=== PATIENT | female | born 1960 | race Caucasian/White ===

== ENCOUNTER → 2023-03-24 12:52 | Outpatient (CLI) | payer MEDICAID, SELFPAY ==
--- NOTE | 2023-03-24 12:30 | DI.CT_ITS ---
Exam(s) CT HEAD FACIAL WO EXAM: CT HEAD FACIAL WO CLINICAL HISTORY: fall, facial injury/head trauma S09.93XA. TECHNIQUE: Imaging Protocol: Axial computed tomography images with coronal and sagittal reformatted images were created and reviewed COMPARISON: No exams were available for comparison FINDINGS: CT Head: Ventricles and Extra axial spaces: Normal in size and morphology for the patient's age. Hemorrhage: None. Cerebral parenchyma: Mild atrophy. Midline shift: None. Brainstem/Cerebellum: Normal. Calvarium: Normal. Visualized Paranasal sinuses/Mastoids: Moderate mucosal thickening bilateral maxillary sinuses and et hmoid sinuses. No air-fluid levels.. Soft Tissues: Unremarkable. CT Face: Facial Bones: Question nondisplaced right nasal fracture. Sinuses and Mastoids: Unremarkable. Globes, extraocular muscles, optic nerves and retrobulbar fat: Normal. Upper aerodigestive tract: Normal. Mandible and bilateral temporomandibular joints: Severe degenerative changes at the temporomandibula r joints, left greater than right. Soft tissues: Normal. IMPRESSION: 1. Head CT: No acute intracranial process. Sinus disease. 2. Facial CT: Question of a nondisplaced right nasal fracture. RADIATION DOSE DELIVERED: Total DLP DATA REPOSITORY: All CT scans at this facility are submitted to the National Radiology Data Registry (NRDR) Dose Index Registry (DIR) with the [employer] (ACR). RADIATION OPTIMIZATION: All CT scans at this facility use at least one of these dose optimization te chniques: automated exposure control; mA and/or kV adjustment per patient size (includes targeted exa ms where dose is matched to clinical indication); or iterative reconstruction.
== END ==
PROVIDERS: Visit Provider Physician Assistant
DX: S09.93XA Unspecified injury of face, initial encounter (principal); W19.XXXA Unspecified fall, initial encounter; X58.XXXA Exposure to other specified factors, initial encounter
CPT/HCPCS: 70450; 70486

== ENCOUNTER 2023-03-26 18:17 | Emergency (ER) | payer MEDICAID, SELFPAY ==
[2023-03-26 18:30] VITALS: BP 157/102; PULSE 115; RESP 16; TEMP 36.6; O2SAT 98
--- NOTE | 2023-03-26 19:10 | ED.GENADUL_ITS ---
Discharge Plan Disposition Patient Disposition: Home Condition: Improving Discharge Details Chief Complaint: Epistaxis Clinical Impression: Epistaxis Primary Care Provider: None,None ED Provider: Kayden Vazquez Home Meds and New Rx's Prescriptions: No Action amoxicillin-pot clavulanate 875-125 mg tablet 1 tab PO Q12H Qty: 14 0RF Discharge Instructions Instructions: Nosebleed (ED) Additional Instructions: Care management team will be reaching out for further resources. We will also be coordinating primary care referral. Medical Decision Making 62-year-old female status post fall on 03/24 outpatient imaging showing possible right nasal bone fracture, presents with spontaneous left nares epistaxis, patient is on a daily aspirin, no trauma today neurologically intact hemodynamically stable, tachycardia likely related to situational discomfort, warm well-perfused on examination alert oriented no external signs of acute trauma, subacute ecchymosis to bridge of nose, anterior left nares bleed without evidence of posterior bleed, tolerating secretions airway intact. Pressure clamp, Afrin and TXA applied with success. Home care instructions and return precautions given. 21: 10 patient resting comfortably, hemostatic. Family numbers here at bedside endorse that patient does have a history of extensive alcohol abuse which likely related to her fall. Patient neurologically intact no acute distress. Given Afrin for home. Home care instructions for worsening symptoms. Will place patient on care management list for coordination of outpatient resources as needed. Patient also given referral for primary care physician HPI General Date/Time Provider Initiated Documentation: 03/26/23 18:36 . HPI Narrative: 62-year-old female sustained facial injury 03/24 outpatient imaging showing right nasal bone fracture, presents with spontaneous left nares anterior nosebleed. Related Data Home Medications Medication Instructions Recorded Confirmed amoxicillin 875 mg-potassium 1 tab PO Q12H #14 tabs 03/24/23 03/24/23 clavulanate 125 mg tablet Previous Rx's Medication Instructions Recorded amoxicillin 875 mg-potassium 1 tab PO Q12H #14 tabs 03/24/23 clavulanate 125 mg tablet Allergies Allergy/AdvReac Type Severity Reaction Status Date / Time No Known Allergies Allergy Verified 03/24/23 12:01 General Stated Complaint: Epistaxis KAMI: 3 Review of Systems Narrative: Review of Systems Constitutional: negative Eyes: negative ENT: Nosebleed Cardiovascular: negative Respiratory: negative Gastrointestinal: negative : negative Musculoskeletal: negative Skin: negative Neurologic: negative Psych: negative PFSH All Active Problems (Updated 03/26/23 @ 21:12 by Kayden Vazquez MD) Epistaxis (Acute) Social History Smoking/Tobacco Use Status: Current every day Smoking risk assessment performed?: Yes Alcohol Intake: current Alcohol Intake frequency: holidays/special occasions only Drug use: Never Do you feel safe at home: Yes Do you feel safe in your relationship?: Yes Exam Narrative Exam Narrative: Physical Examination General: alert, awake, cooperative, resting comfortably, no acute distress HEENT: Subacute appearing ecchymosis to bridge of nose, left anterior nares epistaxis, patient tolerating secretions no evidence of posterior epistaxis Neck: supple, trachea midline; full ROM Chest: normal to inspection Respiratory: normal respiratory effort, speaking in full sentences Neuro: AAOx3, normal speech, moving all extremities Psych: Appropriate mood and affect Course Vital Signs Vital signs: Vital Signs Temperature 36.6 C 03/26/23 18:30 Pulse 115 H 03/26/23 18:30 Respiratory Rate 16 03/26/23 18:30 Blood Pressure 157/102 H 03/26/23 18:30 Pulse Oximetry 98 03/26/23 18:30 Temperature 36.6 C 03/26/23 18:30 Temperature Source Tympanic 03/26/23 18:30 Pulse 115 H 03/26/23 18:30 Respiratory Rate 16 03/26/23 18:30 Respiratory Effort Normal 03/26/23 18:33 Blood Pressure 157/102 H 03/26/23 18:30 Blood Pressure Position Sitting 03/26/23 18:30 Pulse Oximetry 98 03/26/23 18:30 Oxygen Delivery Method Room Air 03/26/23 18:30 Oxygen Flow Rate 0 03/26/23 18:30 Pain Level 0 03/26/23 18:30 PAWSS Have you Been Recently Intoxicated or Drunk Within the Last 30 days?: No Result: 0
--- NOTE | 2023-03-26 22:51 | NUR.NOTE ---
Pt placed care management referral list to establish primary care, Alcoholism, and nose bleed. Pt to be seen within 1-[address] Vazquez.
== END 2023-03-26 21:16 | disposition home or self-care (01) ==
PROVIDERS: Emergency Provider Emergency Medicine
DX: R04.0 Epistaxis (principal)
CPT/HCPCS: 30901; 99282

== ENCOUNTER 2023-03-27 10:21 | Emergency (ER) | payer MEDICAID, SELFPAY ==
[2023-03-27 10:24] VITALS: BP 136/89; PULSE 110; RESP 20; TEMP 37.2; O2SAT 98
[2023-03-27 11:47] VITALS: BP 149/109; PULSE 122; TEMP 36.1; O2SAT 99
[2023-03-27 12:01] LABS: Abs Immature Grans 0.06 10^3/uL (0.0-0.06); Absolute Basophil Count 0.05 10^3/uL (0.0-0.2); Absolute Eosinophil Count 0.08 10^3/uL (0.0-0.7); Absolute Lymphocyte Count 3.11 10^3/uL (1.2-3.4); Absolute Monocyte Count 0.96 10^3/uL (0.1-0.8); Absolute Neutrophil Count 6.35 10^3/uL (1.2-6.7); Basophils % 0.5; Eosinophils % 0.8; HCT 32.5 % (36.0-46.0); Immature Grans % 0.6; Lymphocytes % 29.3; MCH 34.9 pg (27.0-33.0); MCHC 33.8 % (32.0-36.0); MCV 103 fL (80-95); MPV 9.5 fL (8.0-11.0); Neutrophils % 59.8; Platelet Count 215 10^3/uL (130-400); RBC 3.15 10^6/uL (3.93-5.22); RDW 14.5 % (11.7-14.6); WBC 10.61 10^3/uL (4.4-10.8)
[2023-03-27] MEDS: Ondansetron 4 MG/2 ML VIAL 8 MG IVP (12:02)
[2023-03-27] MEDS: LORazepam 2 MG/ML VIAL 0.5 MG IVP (12:03)
[2023-03-27] MEDS: Oxymetazolone 0.05% SPRAY 15 ML BTL (12:03)
[2023-03-27] MEDS: Benzocaine 20% 60 ML CAN (12:04)
[2023-03-27] MEDS: Normal Saline 1,000 ML 1000 ML IV (12:04)
[2023-03-27] MEDS: Tranexamic Acid 1,000 MG/10 ML VIAL 500 MG NS (12:04)
[2023-03-27 12:15] LABS: INR 1.1 (0.9-1.1); PTT Activated 24.2 sec (23.6-32.8); Prothrombin Time 11.3 sec (9.1-11.1)
[2023-03-27 12:17] LABS: ALT 38 U/L (14-59); AST 35 U/L (15-37); Albumin 3.8 g/dL (3.4-5.0); Alkaline Phosphatase 67 U/L (46-116); Anion Gap 11.6 mmol/L (3-11); BUN 19 mg/dL (7-18); Bilirubin, Total 0.7 mg/dL (0.2-1.0); CO2 24.4 mmol/L (21.0-32.0); CREATININE 0.9 mg/dL (0.55-1.02); Calcium 9.1 mg/dL (8.5-10.1); Chloride 96 mmol/L (98-107); Estimated GFR 71.83 (mL/min/1.73m2); Glucose 138 mg/dL (74-106); Potassium 3.6 mmol/L (3.5-5.1); Sodium 132 mmol/L (136-145); Total Protein 7.8 g/dL (6.4-8.2)
--- NOTE | 2023-03-27 12:49 | ED.GENADUL_ITS ---
Discharge Plan Disposition Patient Disposition: Home Discharge Details Clinical Impression: Epistaxis Primary Care Provider: None,None ED Provider: Rosalee Bedolla Home Meds and New Rx's Prescriptions: No Action amoxicillin-pot clavulanate 875-125 mg tablet 1 tab PO Q12H Qty: 14 0RF Discharge Instructions Instructions: Nosebleed (ED) Additional Instructions: Dr. Izaguirre's office will call you Wednesday for a follow-up appointment. Stop your aspirin. Continue your Augmentin. Tylenol 650 mg every 4-6 hours as needed for pain. Return to ED for bleeding out your nostrils or down the back of your throat. Discharge Data Discharge Date/Time-TO BE ENTERED AT DEPARTURE: 03/27/23 13:22 Medical Decision Making Patient is much calmer and states that she feels well in the ED. I will set her up for ENT follow-up on Wednesday. She just started Augmentin last night and I will have her continue this. Her AP pack will stay in place until seen by ENT. I have asked her to stop her aspirin. Of note, the patient is typically tachycardic when she is seen by providers. 1315. The patient, her daughter, and niece are all updated on the plan. Dr. Izaguirre's office will call her Wednesday for follow-up. Primary care referral was put in last night as well. Post OP and R nares clear w/no bleeding Medical Records Medical records reviewed: Yes I reviewed the patient's medical records. Medical records narrative: Patient had a nondisplaced nasal fracture on 03/24/23. Lab Data Lab results reviewed: Yes I reviewed the patient's lab results. Lab results narrative: Patient's hemoglobin and hematocrit are 11 and 32.5. I do not see any old labs for comparison. The BUN is 19, glucose 138, sodium 132, and chloride 96. The remainder of her labs are normal including platelets, INR, and PTT. HPI General Date/Time Provider Initiated Documentation: 03/27/23 11:13 . History of Present Illness described as moderate, HPI Narrative: This 62-year-old female patient presents with a chief complaint of epistaxis. The patient states that her nose began to bleed last night but by the time she came to the ED it had stopped. It began to bleed again this morning around 10 or 1015 and she could not stop it. She states that it is coming out of her left nares as well as going down the back of her throat. Of note, the patient fell on her face about a week ago and fractured her nose. She is an alcoholic. She is anxious in the ED. She denies hematuria or bright red blood per rectum. She has vomited some clots. On my instruction she blew out multiple clots in the ED. She has no dizziness or lightheadedness. Her daughter and niece are here with her. Related Data Home Medications Medication Instructions Recorded Confirmed amoxicillin 875 mg-potassium 1 tab PO Q12H #14 tabs 03/24/23 03/27/23 clavulanate 125 mg tablet Previous Rx's Medication Instructions Recorded amoxicillin 875 mg-potassium 1 tab PO Q12H #14 tabs 03/24/23 clavulanate 125 mg tablet Allergies Allergy/AdvReac Type Severity Reaction Status Date / Time codeine AdvReac Mild Nausea Verified 03/27/23 10:53 General Stated Complaint: Epistaxis KAMI: 3 Review of Systems Constitutional Constitutional: Denies chills, Denies fever(s), Denies headache(s) and Denies weakness Eyes Eyes: Reports other (No redness) ENT Ears, Nose, Mouth, and Throat: Denies headache(s), Reports epistaxis (Left nares) and Denies disequilibrium Cardiovascular Cardiovascular: Denies chest pain and Denies dyspnea Respiratory Respiratory: Denies cough and Denies dyspnea Gastrointestinal Gastrointestinal: Reports abdominal pain (transient), Reports nausea, Reports vomiting and Reports hematemesis Genitourinary Genitourinary: Denies hematuria Musculoskeletal Musculoskeletal: Denies abnormal gait Integumentary/Breasts Skin/Breast: Reports other (No pallor or unusual bruising) Neurologic Neurologic: Denies abnormal gait, Denies headache(s), Denies disequilibrium and Denies weakness PFSH All Active Problems (Updated 03/27/23 @ 13:01 by Rosalee Bedolla MD) Epistaxis (Acute) Social History Smoking/Tobacco Use Status: Current every day Smoking risk assessment performed?: Yes Alcohol Intake: current Alcohol Intake frequency: holidays/special occasions only Drug use: Never Do you feel safe at home: Yes Do you feel safe in your relationship?: Yes Exam Const General: well developed and anxious Orientation: alert, awake and oriented x3 Limitations: mental status not altered [facility] Head: normocephalic and atraumatic General nose exam: external nose normal, epistaxis (Left nares, steady) and other (R nares clear w/no active bleed s/p pack placed L) Face and sinus: ecchymosis (Old ecchymosis evident beneath eyes and on the lower face around mouth) Mouth: oral mucosae normal and moist mucous membranes Throat: other (Posterior oropharynx with active bleeding) Eyes Conjunctivae: conjunctivae normal Neck Neck: full ROM Chest Chest: normal inspection of the chest Resp Effort & Inspection: normal respiratory effort and able to speak in complete sentences Auscultation: clear to auscultation bilaterally Cardio Rate: regular rate Rhythm: regular rhythm GI Inspection: normal to inspection Palpation: soft and nontender Auscultation: normal bowel sounds Skin General skin exam: other (PWD) Neuro General: patient alert and patient awake Speech: speech normal Gait: normal gait Motor: strength 5/5 throughout Sensory Exam: no sensory deficits noted Extrem General: normal to inspection and full ROM Course Vital Signs Vital signs: Vital Signs Temperature 37.2 C 03/27/23 10:24 Pulse 110 H 03/27/23 10:24 Respiratory Rate 20 03/27/23 10:24 Blood Pressure 136/89 03/27/23 10:24 Pulse Oximetry 98 03/27/23 10:24 Temperature 36.1 C L 03/27/23 11:47 Temperature Source Oral 03/27/23 10:24 Pulse 122 H 03/27/23 11:47 Respiratory Rate 20 03/27/23 10:24 Respiratory Effort Normal, Non-Labored 03/27/23 10:49 Blood Pressure 149/109 H 03/27/23 11:47 Blood Pressure Position Sitting 03/27/23 10:24 Pulse Oximetry 99 03/27/23 11:47 Oxygen Delivery Method Room Air 03/27/23 11:47 Oxygen Flow Rate 0 03/27/23 11:47 Pain Level 8 03/27/23 12:03 Lab/Test Results Lab/Test Results: Laboratory Tests Range/Units 03/27/23 11:48 WBC (4.4-10.8) 10^3/uL 10.61 RBC (3.93-5.22) 10^6/uL 3.15 L Hgb (11.2-15.7) g/dL 11.0 L Hct (36.0-46.0) % 32.5 L MCV (80-95) fL 103 H MCH (27.0-33.0) pg 34.9 H MCHC (32.0-36.0) % 33.8 RDW (11.7-14.6) % 14.5 Plt Count (130-400) 10^3/uL 215 MPV (8.0-11.0) fL 9.5 Immature Gran % 0.6 Neutrophils % 59.8 Lymphocytes % 29.3 Monocytes % 9.0 Eosinophils % 0.8 Basophils % 0.5 Nucleated RBC % (0.0-0.3) % 0.0 Absolute Neutrophils (1.2-6.7) 10^3/uL 6.35 Absolute Lymphocytes (1.2-3.4) 10^3/uL 3.11 Absolute Monocytes (0.1-0.8) 10^3/uL 0.96 H Absolute Eosinophils (0.0-0.7) 10^3/uL 0.08 Absolute Basophils (0.0-0.2) 10^3/uL 0.05 PT (9.1-11.1) sec 11.3 H INR (0.9-1.1) 1.1 APTT (23.6-32.8) sec 24.2 Sodium (136-145) mmol/L 132 L Potassium (3.5-5.1) mmol/L 3.6 Chloride (98-107) mmol/L 96 L Carbon Dioxide (21.0-32.0) mmol/L 24.4 Anion Gap (3-11) mmol/L 11.6 H BUN (7-18) mg/dL 19 H Creatinine (0.55-1.02) mg/dL 0.9 Est GFR (CKD-EPI 2020) (mL/min/1.73m2) 71.83 Glucose (74-106) mg/dL 138 H Calcium (8.5-10.1) mg/dL 9.1 Total Bilirubin (0.2-1.0) mg/dL 0.7 AST (15-37) U/L 35 ALT (14-59) U/L 38 Alkaline Phosphatase (46-116) U/L 67 Total Protein (6.4-8.2) g/dL 7.8 Albumin (3.4-5.0) g/dL 3.8 Procedures Other Description: Epistaxis control: Patient with active bleeding down her posterior oropharynx is as well as about her left nares. She blew her nose and a large amount of clot came out. Large Q-Tip with TXA placed L after benzocaine sprayed into the nares and posterior oropharynx. A 7.5 cm AP pack ([employer]) was gently placed after this with balloon inflated. Patient tolerated this well. Initially had some blood coming out of her right nares but this quickly stopped after the pack was placed. Posterior oropharynx became dry following this. Patient was retching and felt sick to her stomach. She was given Zofran and a small amount of Ativan with good relief. PAWSS Have you Been Recently Intoxicated or Drunk Within the Last 30 days?: Yes Have you Ever Experienced Previous Episodes of Alcohol Withdrawal?: Yes Have you ever Experienced Withdrawal Seizures?: No Have you ever Experienced Delirium Tremens(DT)s?: No Have you ever undergone Alcohol Rehabilitation Treatment (i.e, inpt ot outpa tient treatment programs)?: Yes Have you ever Experienced Blackouts?: No Have you ever Combined Alcohol with other Downers within the last 90 days?: No Have you ever Combined Alcohol with any other Substance of Abuse during the last 90 days?: No Positive Blood Alcohol level on Presentation? [PCS.BAL]: Unable to Obtain Evidence of Increased Autonomic Activity (i.e. HR>120, tremor, sweating, agitation, nausea)?: No Result: 3
[2023-03-27 13:21] VITALS: BP 131/94; PULSE 114; RESP 16; TEMP 37.1; O2SAT 98
--- NOTE | 2023-03-27 14:58 | NUR.NOTE ---
Referral fax/email to [facility] for anterior/posterior nosebleed with rhino rocket place; for appt Mar 29. Nursing Note:
== END 2023-03-27 13:22 | disposition home or self-care (01) ==
PROVIDERS: Emergency Provider Emergency Medicine
DX: R04.0 Epistaxis (principal)
CPT/HCPCS: 30901; 80053; 96361; 96374; 96375; 99284; 85025; 85610; 85730; J2060; J2405; J3490

== ENCOUNTER 2023-06-29 03:36 | Outpatient (CLI) | payer MEDICAID, SELFPAY ==
[2023-06-29 12:11] LABS: Abs Immature Grans 0.02 10^3/uL (0.0-0.06); Absolute Basophil Count 0.08 10^3/uL (0.0-0.2); Absolute Eosinophil Count 0.27 10^3/uL (0.0-0.7); Absolute Lymphocyte Count 2.58 10^3/uL (1.2-3.4); Absolute Neutrophil Count 5.13 10^3/uL (1.2-6.7); Basophils % 0.9; Eosinophils % 3.1; HCT 36.4 % (36.0-46.0); HGB 11.9 g/dL (11.2-15.7); Immature Grans % 0.2; Lymphocytes % 29.7; MCH 29.4 pg (27.0-33.0); MCHC 32.7 % (32.0-36.0); MCV 90 fL (80-95); MPV 10.7 fL (8.0-11.0); Monocytes % 6.9; Neutrophils % 59.2; Platelet Count 365 10^3/uL (130-400); RBC 4.05 10^6/uL (3.93-5.22); RDW 14.8 % (11.7-14.6); RDW-SD 48.9 fL; WBC 8.68 10^3/uL (4.4-10.8)
[2023-06-29 12:23] LABS: Iron 42 ug/dL (50-170); Total Iron Binding Capacity 285 ug/dL (250-450); Transferrin Sat 15 % (15-50)
[2023-06-29 12:33] LABS: Hemoglobin A1C 5.7 % (<5.7)
[2023-06-29 12:34] LABS: ALT 15 U/L (14-59); AST 9 U/L (15-37); Albumin 3.9 g/dL (3.4-5.0); Alkaline Phosphatase 58 U/L (46-116); BUN 14 mg/dL (7-18); Bilirubin, Total 0.3 mg/dL (0.2-1.0); CREATININE 0.8 mg/dL (0.55-1.02); Calcium 9.4 mg/dL (8.5-10.1); Chloride 105 mmol/L (98-107); Estimated GFR 82.74 (mL/min/1.73m2); Ferritin 106 ng/mL (8-252); Glucose 112 mg/dL (74-106); Potassium 3.7 mmol/L (3.5-5.1); Sodium 142 mmol/L (136-145); TSH (W/Ref FT4) 2.67 uIU/mL (0.36-3.74); Total Protein 7.5 g/dL (6.4-8.2)
== END 2023-06-29 03:37 | disposition home or self-care (01) ==
LOC: LOS 03:36
PROVIDERS: PCP Nurse Practitioner Family; Visit Provider Nurse Practitioner Family
DX: R53.83 Other fatigue (principal); Z00.00 Encounter for general adult medical examination without abnormal findings
CPT/HCPCS: 36415; 80053; 82728; 83036; 83540; 83550; 84443; 85025

== ENCOUNTER → 2023-07-05 03:10 | Outpatient (CLI) | payer MEDICAID, SELFPAY ==
--- NOTE | 2023-07-05 09:00 | DI.MAMMO_ITS ---
Exam(s) MAMMO SCREENING EXAM: MAMMO SCREENING CLINICAL HISTORY: screening, Z12.39 TECHNIQUE: Mammograms were interpreted according to the usual protocol including computer analysis w [facility] CAD system, tomosynthesis and C-view imaging. COMPARISON: [facility] FINDINGS: The breasts are composed of scattered fibroglandular densities, Breast Density category B. No suspicious masses or suspicious microcalcifications are seen. No skin thickening or abnormal axillary lymph nodes are seen. There has been no significant change from prior exam. IMPRESSION: BI-RADS Category 1, Negative mammogram Yearly screening mammography is recommended. Breast Density - Category B, scattered fibroglandular densities. A negative radiographic report should not delay biopsy if a dominant or clinically suspicious mass is present. Up to ten percent of cancers are not identified on mammography. A negative report may reinforce clinical impression. Adenosis and dense breasts may obscure an underlying neoplasm. False positive reports average 6 to 10%. Patient will receive a letter notifying them of these results.
== END ==
PROVIDERS: PCP Nurse Practitioner Family; Visit Provider Nurse Practitioner Family
DX: Z12.31 Encounter for screening mammogram for malignant neoplasm of breast (principal)
CPT/HCPCS: 77063; 77067

== ENCOUNTER 2023-08-16 16:46 | Outpatient (REF) | payer MEDICAID, SELFPAY ==
--- NOTE | 2023-08-16 14:58 | PAPFT_PTH ---
PATIENT: Kathie Arguello LOC: [facility] U#:[id number] AGE/SX: 62/F ROOM: RE08/16/[address]: Yesica Chang MD : 1960 BED: DIS: 08/16/2023 SPEC #: [id number] RECD: 08/16/23 17:57 STATUS: LISSETTE CLEMENTE #: [id number] DEVORA: 08/16/23 14:[address]: Yesica Chang DEPT: [facility] Cytology RECD BY: July Dao ENTERED: 08/16/23 17:58 SP TYPE: PAPFT OT DR: Minnie Lara, PEDRITO Tissues: 1 - CX/ENDOCX FOR PAP SMEARS Procedures: PAP THIN PREP/UVM Screening HPV DNA PROBE Comments: [id number]
== END 2023-08-16 16:47 | disposition home or self-care (01) ==
LOC: LBN 16:46
PROVIDERS: PCP Nurse Practitioner Family; Visit Provider Obstetrics & Gynecology
DX: Z12.4 Encounter for screening for malignant neoplasm of cervix (principal); Z11.51 Encounter for screening for human papillomavirus (HPV)
CPT/HCPCS: 88142; 87624

== ENCOUNTER 2024-02-15 02:28 | Outpatient (CLI) | payer MEDICAID, SELFPAY ==
[2024-02-15 12:10] LABS: HCT 35.8 % (36.0-46.0); HGB 11.9 g/dL (11.2-15.7); MCH 30.3 pg (27.0-33.0); MCHC 33.2 % (32.0-36.0); MCV 91 fL (80-95); MPV 10.6 fL (8.0-11.0); Platelet Count 292 10^3/uL (130-400); RBC 3.93 10^6/uL (3.93-5.22); RDW 13.5 % (11.7-14.6); RDW-SD 45.3 fL; WBC 6.04 10^3/uL (4.4-10.8)
[2024-02-15 13:09] LABS: Iron 76 ug/dL (50-170); Total Iron Binding Capacity 276 ug/dL (250-450); Transferrin Sat 28 % (15-50)
[2024-02-15 13:18] LABS: ALT 16 U/L (14-59); AST 15 U/L (15-37); Alkaline Phosphatase 66 U/L (46-116); Anion Gap 10.7 mmol/L (3-11); BUN 17 mg/dL (7-18); Bilirubin, Total 0.44 mg/dL (0.2-1.0); CO2 27.3 mmol/L (21.0-32.0); CREATININE 0.8 mg/dL (0.55-1.02); Calcium 9.2 mg/dL (8.5-10.1); Chloride 106 mmol/L (98-107); Estimated GFR 82.23 (mL/min/1.73m2); Ferritin 165 ng/mL (8-252); Glucose 98 mg/dL (74-106); Sodium 144 mmol/L (136-145); Total Protein 7.5 g/dL (6.4-8.2); Vitamin B12 1936 pg/mL (193-986)
[2024-02-15 13:21] LABS: Folate > 20.0 ng/mL (8.6-20.0)
[2024-02-15 16:58] LABS: Hemoglobin A1C 5.4 % (<5.7)
== END 2024-02-15 02:29 | disposition home or self-care (01) ==
LOC: LOS 02:28
PROVIDERS: PCP Nurse Practitioner Family; Visit Provider Nurse Practitioner Family
DX: D50.9 Iron deficiency anemia, unspecified (principal)
CPT/HCPCS: 36415; 80053; 85027; 82607; 82728; 82746; 83036; 83540; 83550

== ENCOUNTER 2024-05-18 08:05 | Day surgery (SDC) | payer MEDICAID, SELFPAY ==
[2024-05-18 08:59] VITALS: BP 145/91; PULSE 76; RESP 18; TEMP 36.4; O2SAT 98
--- NOTE | 2024-05-18 09:24 | W.ANESPRE ---
General Info Date of Service Date Performed: 05/18/24 Height: 5 ft 1.5 in Weight: 69.6 kg Body Mass Index (BMI): 28.5 Surgical Procedure: Operation Date: 05/18/24 09:35 Proposed Procedure Side Surgeon tika Porter MD Meds Allergies and Home Medications Allergies Allergy/AdvReac Type Severity Reaction Status Date / Time codeine AdvReac Mild Nausea Verified 05/18/24 08:54 Home Medication ?Medication ?Instructions ?Recorded multivitamin 1 tab PO DAILY 04/13/23 ferrous sulfate 325 mg (65 mg 325 mg PO DAILY 08/16/23 iron) tablet bupropion HCl 300 mg 24 hr tablet, 300 mg PO QAM #90 tabs 03/21/24 extended release bisacodyl 5 mg tablet,delayed 5 mg PO ONCE #4 tabs 05/04/24 release (Dulcolax (bisacodyl)) polyethylene glycol 3350 17 17 g PO ONCE #238 grams 05/04/24 gram/dose oral powder evening primrose oil 500 mg capsule 500 mg PO DAILY 05/18/24 mecobalamin (vitamin B12) 1,000 1,000 mcg sublingual Q OTHER DAY 05/18/24 mcg disintegrating tablet,sublingual Current Visit Medications: Current Medications Generic Name Dose Route Start Last Admin Trade Name Freq PRN Reason Stop Dose Admin Ringer's Solution 1,000 mls @ 0 mls/hr 05/18/24 06:00 IV 05/18/24 23:59 INFUSION SUSHIL Ringer's Solution 1,000 mls @ 80 mls/hr 05/18/24 08:30 IV 06/17/24 08:29 INFUSION [facility] IV Miscellaneous Supplies 1 each 05/18/24 06:00 Iv Access IV 05/18/24 23:59 DIRECTED SUSHIL Sodium Chloride 0 ml 05/18/24 06:00 Normal Saline Flush 10 Ml Syr IV 05/18/24 23:59 PRN PRN Sodium Chloride 0 ml 05/18/24 06:00 Normal Saline 10 Ml Vial IJ 05/18/24 23:59 DIRECTED PRN Sterile Water 0 ml 05/18/24 06:00 Water,Injection,Sterile 10 Ml Vial IJ 05/18/24 23:59 DIRECTED PRN PFSH Active Problems Active Problems: Problem Status Onset Code Obesity Chronic E66.9 Leg pain, bilateral Acute M79.604, M79.605 Iron deficiency anemia Acute D50.9 Medical History Medical History History of alcohol use Surgical History Surgical History History of colonoscopy H/O section History of appendectomy Tobacco Smoking/Tobacco Use Status: Former Tobacco Use Second hand exposure: Yes Alcohol Alcohol Intake: former Details: 1 year of sobriety Substance Use Substance use: Never Substance use type: does not use Vital Signs and Lab Results Vital Signs Most Recent Vital Signs in EMR: Most Recent Vital Signs Temp Pulse Resp BP Pulse Ox 36.4 C L 76 18 145/91 H 98 05/18/24 08:59 05/18/24 08:59 05/18/24 08:59 05/18/24 08:59 05/18/24 08:59 Lab Results Blood Type / Crossmatch: No Data to Display Complete Blood Count: No Data to Display Complete Metabolic Panel: No Data to Display Liver Function Panel: No Data to Display Coagulation Panel: No Data to Display Cardiac Panel: No Data to Display Arterial Blood Gas: No Data to Display Venous Blood Gas: No Data to Display Pancreas Panel: No Data to Display Thyroid Panel: No Data to Display Infectious Disease: No Data to Display Blood Cultures: No Data to Display Toxicology Panel: No Data to Display Anesthesia Assessment and Plan Anesthesia History Personal History: No History of Anesthesia Complications Family History: No Family History of Anesthesia Complications Exercise Tolerance Exercise Tolerance: Metabolic Equivalents>4 Pertinent Negatives Pertinent Negatives: No Symptoms of GERD, No Major Cardiovascular Symptoms or Complaints and No Major Pulmonary Symptoms or Complaints Cardiac & Pulmonary Exam Cardiac Exam: Normal S1/S2 Heart Sounds and Heart Murmur Present (slight murmur noted) Pulmonary Exam: Clear Bilateral Breath Sounds Implantable Cardiac Device Does patient have a Pacemaker or an ICD?: No Airway Exam Known Difficult Airway: No Mallampati Class: 3 Mouth Opening: Normal (> 3cm) Thyromental Distance: Less than 3 cm Neck Range of Motion: Full ROM Neck Circumference: Normal Teeth Condition: Normal Dentition, Advised tooth loss possible given current condition (indicate tooth) and Removable Dentures/Plates Lower (partial left at home) ASA Classification ASA Score: ASA 2 Emergency Case?: No NPO Status NPO Status: NPO Clears >2 hours, Solids >8 hours Anesthesia Plan Resuscitation Status: Full Code Anesthesia Technique: General Anesthesia Airway Planned: Natural Airway Monitors Used: Standard Monitors Preoperative Comments:: Slight systolic murmur heard, no LE edema, no chest pain or dyspnea, good activity tolerance, discussion with Dr. Porter, decision to proceed and patient counseled to follow up with primary care physician.
[2024-05-18 09:27] VITALS: BMI 28.5
[2024-05-18] MEDS: Lactated Ringers 1,000 ML 80 ML IV (09:30)
[2024-05-18 10:08] VITALS: BP 106/78; PULSE 61; RESP 17; TEMP 36.4; O2SAT 97
--- NOTE | 2024-05-18 10:14 | W.COLOREPORT ---
Date of service: 05/18/24 Time of Service: 10:14 Colonoscopy Report Procedure Description: PROCEDURES PERFORMED: 1. Colonoscopy PREOPERATIVE DIAGNOSIS: Surveillance colonoscopy POSTOPERATIVE DIAGNOSIS: Normal terminal ileum, normal colon, normal rectum SURGEON: Andreea Porter MD INDICATION FOR PROCEDURE: the patient is a 63-year-old woman who is no symptoms or complaints. She is due for surveillance colonoscopy. Last colonoscopy was more than 15 years ago. No family history of significance. FINDINGS: Terminal ileum was normal. Colon was normal. No polyps. No diverticular disease. Rectum was normal without any obvious hemorrhoid disease. SURVEILLANCE interval/FOLLOW-UP: 10 years SPECIMENS: None EBL: Minimal COMPLICATIONS: None QUALITY of prep: Excellent Procedure in detail: The patient gave written consent and was in agreement with the indications, the potential risks as well as the benefits of the procedure. They were taken to the endoscopy suite and laid in the left lateral decubitus position. A timeout was performed and anesthesia was administered which was tolerated well. I started the procedure. Digital rectal and visual examination was performed and grossly within normal limits. A well-lubricated flexible colonoscope was then introduced and passed without any notable difficulty all the way to the cecum identified by the ileocecal valve and the appendiceal orifice. The terminal ileum was intubated and looked normal. The scope was then slowly withdrawn with the above-noted findings. The patient tolerated the procedure well and was taken to the PACU in hemodynamically stable condition.
--- NOTE | 2024-05-18 10:16 | W.PM.DSUDISC ---
Date of service: 05/18/24 Discharge Plan Disposition Patient Disposition: Home Condition: Good Discharge Details Attending Provider: Miky Porter Primary Care Provider: Minnie Lara Home Meds and New Rx's Prescriptions: No Action multivitamin 1 tab PO DAILY ferrous sulfate 325 mg (65 mg iron) tablet 325 mg PO DAILY bupropion HCl 300 mg tablet extended release 24 hr 300 mg PO QAM Qty: 90 3RF bisacodyl [Dulcolax (bisacodyl)] 5 mg tablet,delayed release (DR/EC) 5 mg PO ONCE Qty: 4 0RF Rx Instructions: Take per colonoscopy instructions provided by ordering providers office polyethylene glycol 3350 17 gram/dose powder 17 g PO ONCE Qty: 238 0RF Rx Instructions: Take per colonoscopy instructions provided by ordering providers office evening primrose oil 500 mg capsule 500 mg PO DAILY Rx Instructions: give with meal/snack mecobalamin (vitamin B12) 1,000 mcg tablet,disintegrating 1,000 mcg sublingual Q OTHER DAY Rx Instructions: place tablet under tongue and allow to dissolve for at least30 secs before swallowing Discharge Instructions Additional Instructions: FINDINGS: No polyps, no inflammation, no tumors. Nothing of concern. Everything looks very healthy. Repeat another colonoscopy in 10 years. Follow-up with your PCP about your heart murmur. Activity:: Activity as Tolerated Diet:: As Tolerated
[2024-05-18 10:45] VITALS: BP 138/73; PULSE 74; RESP 17; TEMP 36.3; O2SAT 96
--- NOTE | 2024-05-18 11:24 | W.ANESPOSTOP ---
Postoperative Evaluation Date, Time and Location Date Performed: 05/18/24 Time Performed: 10:10 Patient Location: Day [facility] Unit Vital Signs Most Recent Imported Vital Signs: Most Recent Vital Signs Temp Pulse Resp BP Pulse Ox 36.3 C L 74 17 138/73 96 05/18/24 10:45 05/18/24 10:45 05/18/24 10:45 05/18/24 10:45 05/18/24 10:45 Pain Score Most Recent Pain Score: Most Recent Pain Score Pain Level 0 05/18/24 10:45 Assessment Mental Status: Awake (Alert & Oriented to Patient Baseline) Airway and Respiratory Function: Patent airway with normal (patient baseline) respiratory exam Cardiovascular Function: Hemodynamically Stable Hydration Status: Adequately Hydrated Nausea & Vomiting: No Nausea or Vomiting Pain: Pt. Denies Any Pain Peripheral Nerve Block: Patient did not receive a nerve block
== END 2024-05-18 10:55 | disposition home or self-care (01) ==
PROVIDERS: PCP Nurse Practitioner Family; Visit Provider Student in an Organized Health Care Education/Training Program
PROC: 0DJD8ZZ Inspection of Lower Intestinal Tract, Via Natural or Artificial Opening Endoscopic (ICD-10-PCS; CPT 45378; principal; 2024-05-18 09:30)
DX: Z12.11 Encounter for screening for malignant neoplasm of colon (principal)
CPT/HCPCS: 45378; J2405; J2704

== ENCOUNTER 2024-06-06 00:29 | Outpatient (CLI) | payer MEDICAID, SELFPAY ==
--- NOTE | 2024-06-06 08:30 | DI.US_ITS ---
APPROVED REPORT EXAM: Comprehensive 2D, Doppler, and color-flow Echocardiogram Patient Location: Out-Patient Petrophysical Engineer: Abiodun Thomson RDCS (AE) Indications: New murmur Conclusion Normal left ventricular wall thickness and chamber size. Ejection fraction is 60%. Wall motion is n ormal Normal right ventricular size and function Both atria are normal in size The aortic valve is sclerotic and trileaflet without stenosis or regurgitation Ascending aorta measures 3.55 cm Wall motion Left Ventricle The left ventricle is normal size. The left ventricular systolic function is normal. The left ventric ular ejection fraction is within the normal range. There is normal left ventricular wall thickness. T here is normal LV segmental wall motion. There is no ventricular septal defect visualized. LVEF is 60 %. Right Ventricle The right ventricle is normal size. The right ventricular systolic function is normal. Atria The left atrium size is normal. The right atrium size is normal. The interatrial septum is intact wit h no evidence for an atrial septal defect. Aortic Valve The aortic valve is sclerotic. Aortic valve is trileaflet. There is no aortic valvular stenosis. No a ortic regurgitation is present. Mitral Valve The mitral valve is normal in structure. No evidence of mitral valve stenosis. There is no mitral korey ve regurgitation noted. Tricuspid Valve The tricuspid valve is normal in structure. There is no tricuspid valve stenosis. Trace tricuspid reg urgitation. Unable to assess PA pressure. Pulmonic Valve The pulmonary valve is normal in structure. There is no pulmonic valvular stenosis. Mild pulmonic reg urgitation. Great Vessels The aortic root is normal in size. The ascending aorta is mildly dilated. Aortic arch is normal in ca liber. IVC is normal in size and collapses >50% with inspiration. Pericardium There is no pericardial effusion. 2D Dimensions IVSD d PLAX 0.91 cm F: 0.6-1.0 Ao Root d 2.77 cm F: 2.7 - 3.3 LVPW d PLAX 0.85 cm F: 0.6 - 1.0 Ao Asc Diam d 3.55 cm F: 2.3 - 3.1 LVID d PLAX 3.86 cm F: 3.8 - 5.2 LVDs 2.66 cm F: 2.2 - 3.5 LV EF Teichholz 59.7 % FS 31.20 % LV EDV (Teich) 64.5 mL LV ESV (Teich) 26.0 mL Stroke Vol Index (Teich) 22.12 M-Mode TAPSE 1.71 cm (M/F) >1.7 Auto EF LV EDV A4C 90.4 mL LV EDV A2C 73.4 mL LV EDV BP LV ESV A4C 35.9 mL LV ESV A2C 28.9 mL LV ESV BP LVEF(%) A4C 60.3 % LVEF(%) A2C 60.6 % LVEF(%) BP LV SV A4C 54.6 ml LV SV A2C 44.5 ml LV SV BP LV CO A4C 4.4 L/min LV CO A2C 3.5 L/min LV CO BP HR A4C 80.90 BPM HR A2C 78.26 BPM LV EDV Index (BP) LA Volume LA Length A4C 4.2 cm LA Length A2C 4.7 cm LA Area A4C s 18.50 cm2 LA Area A2C s 13.24 cm2 LA Vol A4C A-L 69.11 mL LA Vol A2C A-L 31.47 mL LA Vol Biplane A-L 49.5 mL LA Vol/BSA A4C A-L LA Vol/BSA A2C A-L LA Vol/BSA BP A-L 28.4 mL/m2 LA Vol A4C MOD 56.4 mL LA Vol A2C MOD 29.4 mL LA Vol BP MOD 43.0 mL RA Volume RA Area A4C 8.4 cm2 RA ESV A4C (A-L) 16.5mL RA Vol/BSA A4C A-L RA Length A4C 3.6 cm RA ESV A4C (MOD) 14.4mL LV Diastology MV E' medial 0.053 (>0.07 m/s) MV E Vmax 0.57 (0.4-1.3 m/s) MV E/E' MED 10.90 (<14) MV A Vmax 0.85 (0.4-1.3 m/s) MV E' lateral 0.041 (>0.1 m/s) E/A Ratio 0.7 MV E/E' LAT 13.99 (<14) MV E' Average 0.047 m/s MV E/E'(average) 12.26 Aortic Valve AoV Vmax 1.72 m/s LVOT Vmax 0.86 m/s AoV Peak Grad 11.8 mmHg LVOT Peak Grad 3.0 mmHg AoV Area (Vmax) 1.57 cm2 LVOT VTI 0.204 m AoV VTI 0.334 m LVOT Mean Grad 1.8 mmHg AoV Mean Jose J. 1.19 m/s LVOT SV 63.80 mL AoV Mean Grad 6.4 mmHg LVOT Diam s 1.95 cm AoV Area (VTI) 1.91 cm2 AV Regurg Peak Gr. 11.81 mmHg Velocity Ratio 0.50 Mitral Valve MV DT 195 (160-240 msec) MV Vmax TIPS 0.99 m/s MV Mean Grad 1.3 (<2mmHg) MV VTI 0.244 m Pulmonary Valve PV Vmax 0.95 (0.5-1.5 m/s) RVOT Vmax 0.53 m/s PV Peak Grad 3.6 mmHg RVOT Peak Gr. 1.1 mmHg PV Mean Jose J 0.61 m/s RVOT VTI 0.106 m PV Mean Grad 1.7 mmHg RVOT Mean Gr. 0.7 mmHg
== END 2024-06-06 00:49 ==
LOC: DI 00:30
PROVIDERS: PCP Nurse Practitioner Family; Visit Provider Nurse Practitioner Family
DX: R01.1 Cardiac murmur, unspecified (principal); I35.8 Other nonrheumatic aortic valve disorders
CPT/HCPCS: 93306

== ENCOUNTER 2024-07-11 01:12 | Outpatient (CLI) | payer MEDICAID, SELFPAY ==
--- NOTE | 2024-07-11 07:45 | DI.MAMMO_ITS ---
Exam(s) MAMMO SCREENING EXAM: MAMMO SCREENING CLINICAL HISTORY: screening,z12.39 TECHNIQUE: Bilateral full field digital CC and MLO mammographic images were obtained with 3D tomosyn thesis and utilizing computer aided detection (CAD). COMPARISON: Available for comparison. FINDINGS: Masses/Architectural Distortion: No suspicious masses are seen. No areas of architectural distortion are present. There is a stable nodule in the upper outer quadrant of the right breast. Microcalcifications: No suspicious pleomorphic-type are seen. Skin Thickening/Nipple Retraction: None. IMPRESSION: 1. No significant interval change with no specific features of malignancy noted. 2. Unless there is more urgent need, screening mammography is recommended, as per [employer] guidelines. BI-RADS Category 1 - Negative Breast Density - Category B - Scattered areas of fibroglandular density Breast density category C or D implies that the patient has dense breast tissue. Dense breast tissue is very common and is not abnormal but dense breast tissue can make it harder to find cancer on a ma mmogram. Also, dense breast tissue may increase their breast cancer risk. This information about the result of the mammogram report was provided to the patient to raise their awareness. Use this report when you speak with the patient about their risks for breast cancer, which includes their family hist ory. At that time, you may recommend for more screening tests (Ultrasound or MRI) as they might be us eful based on their risk. A negative radiographic report should not delay biopsy if a dominant or clinically suspicious mass is present. Up to ten percent of cancers are not identified on mammography. A negative report may reinforce clinical impression. Adenosis and dense breasts may obscure an underlying neoplasm. False positive reports average 6 to 10%. Patient will receive a letter notifying them of these results.
== END 2024-07-11 01:32 ==
PROVIDERS: PCP Nurse Practitioner Family; Visit Provider Nurse Practitioner Family
DX: Z12.31 Encounter for screening mammogram for malignant neoplasm of breast (principal); R92.323 Mammographic fibroglandular density, bilateral breasts
CPT/HCPCS: 77063; 77067

== ENCOUNTER 2024-07-27 01:43 | Outpatient (CLI) | payer MEDICAID, SELFPAY ==
--- NOTE | 2024-07-27 08:00 | DI.DEXA_ITS ---
Exam(s) XR DEXA BONE DENSITY W/WO JOSUE EXAM: XR DEXA BONE DENSITY W/WO JOSUE CLINICAL HISTORY: screening,menopausal disorder,n95.9 TECHNIQUE: HoloMOLOME Horizon C densitometer analysis of left hip, lumbar spine and left forearm. Lat eral survey image of the thoracic and lumbar spine. COMPARISON: No exams were available for comparison FINDINGS: Lateral view of the thoracic and lumbar spine shows no evidence of compression fractures. Bone mineral density measurements of the lumbar spine correspond to a total T-score of -2.5, in the osteoporotic range Bone mineral density measurements of the left hip correspond to a total T-score of -2.0. The femora l neck T-score is -2.7, in the osteoporotic range. Theleft forearm bone mineral density measurements correspond to a T-score of the distal 3rd of -1.2, in the osteopenic range. IMPRESSION: Osteoporosis of the hip and spine. Osteopenia of the forearm.
== END 2024-07-27 02:03 ==
LOC: DI 01:43
PROVIDERS: PCP Nurse Practitioner Family; Visit Provider Nurse Practitioner Family
DX: N95.9 Unspecified menopausal and perimenopausal disorder (principal); Z13.820 Encounter for screening for osteoporosis; M85.89 Other specified disorders of bone density and structure, multiple sites
CPT/HCPCS: 77080

== ENCOUNTER 2024-08-17 01:04 | Outpatient (CLI) | payer MEDICAID, SELFPAY ==
[2024-08-17 12:45] LABS: HCT 39.4 % (36.0-46.0); HGB 12.7 g/dL (11.2-15.7); MCH 29.6 pg (27.0-33.0); MCHC 32.2 % (32.0-36.0); MCV 92 fL (80-95); MPV 10.6 fL (8.0-11.0); Platelet Count 307 10^3/uL (130-400); RBC 4.29 10^6/uL (3.93-5.22); RDW 13.8 % (11.7-14.6); RDW-SD 46.8 fL; WBC 8.49 10^3/uL (4.4-10.8)
[2024-08-17 13:07] LABS: ALT 18 U/L (14-59); AST 11 U/L (15-37); Albumin 4.1 g/dL (3.4-5.0); Alkaline Phosphatase 59 U/L (46-116); Anion Gap 8.4 mmol/L (3-11); BUN 14 mg/dL (7-18); Bilirubin, Total 0.3 mg/dL (0.2-1.0); CO2 29.6 mmol/L (21.0-32.0); CREATININE 0.9 mg/dL (0.55-1.02); Calcium 9.1 mg/dL (8.5-10.1); Calculated LDL 167 mg/dL (<100); Chloride 105 mmol/L (98-107); Cholesterol 261 mg/dL (<200); Estimated GFR 71.39 (mL/min/1.73m2); Glucose 116 mg/dL (74-106); HDL Cholesterol 79 mg/dL (>or=50); Potassium 4.2 mmol/L (3.5-5.1); Sodium 143 mmol/L (136-145); Total Protein 7.5 g/dL (6.4-8.2); Triglyceride 76 mg/dL (<150)
== END 2024-08-17 01:05 | disposition home or self-care (01) ==
LOC: LOS 01:04
PROVIDERS: PCP Nurse Practitioner Family; Visit Provider Nurse Practitioner Family
DX: Z00.00 Encounter for general adult medical examination without abnormal findings (principal); D50.9 Iron deficiency anemia, unspecified; E66.9 Obesity, unspecified
CPT/HCPCS: 36415; 80053; 80061; 85027

== ENCOUNTER 2024-11-28 03:11 | Outpatient (CLI) | payer MEDICARE, SELFPAY ==
--- NOTE | 2024-11-28 14:33 | DI.RAD_ITS ---
Exam(s) XR SHOULDER LT COMPLETE 2+V EXAM: XR SHOULDER LT COMPLETE 2+V CLINICAL HISTORY: pain LT SHOULDER, M25.512. TECHNIQUE: 2D digital imaging was performed. Three views. COMPARISON: No exams were available for comparison FINDINGS: BONES: No acute fracture is present. No bony destructive lesion is seen. Anterior hook at the acromion. JOINTS: No dislocation present. Glenohumeral joint space is maintained. Minimal spurring at the glenoid. SOFT TISSUE: Normal. IMPRESSION: Anterior acromial hook. Mild degenerative changes. DATA REPOSITORY: RADIATION DOSE DELIVERED:
== END 2024-11-28 03:31 ==
LOC: DI 03:11
PROVIDERS: PCP Nurse Practitioner Family; Visit Provider Nurse Practitioner Family
DX: M25.512 Pain in left shoulder (principal)
CPT/HCPCS: 73030

== ENCOUNTER 2024-12-05 02:30 | Outpatient (CLI) | payer MEDICARE, SELFPAY ==
--- NOTE | 2024-12-05 09:00 | DI.CTLCSR_ITS ---
Exam(s) CT CHEST LUNG CANCER SCREEN EXAM: CT CHEST LUNG CANCER SCREEN CLINICAL HISTORY: Screening for lung cancer, F17.200-Nicotine dependence TECHNIQUE: Imaging Protocol: Axial computed tomography images with coronal and sagittal reformatted images were created and reviewed. Lung Computer Aided Detection (CAD) was utilized. COMPARISON: No exams were available for comparison FINDINGS: Tracheobronchial tree: Patent where visualized. No bronchiectasis. Pulmonary parenchyma: No consolidation or dominant measurable mass. No architectural distortion. There is a calcified granuloma in the superior segment of the left lower lobe. There is scarring seen in the lateral aspect of the right lower lobe. Lung Nodules: There are no suspicious pulmonary nodules. Mediastinum and Alejandrina: No dominant adenopathy or fluid collection. The esophagus is unremarkable. Thyroid gland: Unremarkable. Lymph nodes: Unremarkable. Pleura: No effusion or pneumothorax. Heart: The heart is not dilated. No coronary artery calcifications are seen. No pericardial effusion. Aorta: Thoracic aorta non-dilated.Mild atherosclerotic calcification is present. Upper abdomen: Unremarkable. Soft Tissues: Unremarkable. Bones: Within normal limits. There is mild old compression of the T11 superior endplate. IMPRESSION: There are no suspicious pulmonary nodules. Lung RADS Cat 1 - Negative: No nodules and definitely benign nodules Lung-RADS 1.0 CATEGORIES: Category 0 - Prior chest CT exam(s) being located for comparison. Category 1 - Annual screening in 12 months. No nodules or definitely benign nodules. Category 2 - Annual screening in 12 months. Benign appearance. Nodules with low likelihood of becoming active cancer. Category 3 - 6-month follow-up. Probably benign. Short-term follow-up suggested. Nodules with low likelihood of becoming active cancer. Category 4A - 3-month follow-up and CT/PET if >8 mm in size. Suspicious finding. Findings which require additional testing. Category 4B - Findings which require additional testing and tissue sampling. Suspicious finding. Category 4X - Category 3 or 4 nodules with additional features or imaging findings that increases the suspicion of malignancy. Modifier S- Potentially clinically significant finding. (Non lung cancer) RADIATION DOSE DELIVERED: 25.12mGy.cm Total DLP 25.12mGy.cmTotal DLP DATA REPOSITORY: All CT scans at this facility are submitted to the National Radiology Data Registry (NRDR) Dose Index Registry (DIR) with the [employer] ([employer]). RADIATION OPTIMIZATION: All CT scans at this facility use at least one of these dose optimization techniques: automated exposure control; mA and/or kV adjustment per patient size (includes targeted exams where dose is matched to clinical indication); or iterative reconstruction.
== END 2024-12-05 02:50 ==
PROVIDERS: PCP Nurse Practitioner Family; Visit Provider Nurse Practitioner Family
DX: Z12.2 Encounter for screening for malignant neoplasm of respiratory organs (principal); Z87.891 Personal history of nicotine dependence
CPT/HCPCS: 71271